=== PATIENT | male | born 1990 | race Caucasian/White ===

== ENCOUNTER 2019-08-20 05:00 | Emergency (ER) | payer SELFPAY | END 2019-08-20 07:43 | disposition left against medical advice (07) | LOC: ER 05:00 | DX: Z53.21 Procedure and treatment not carried out due to patient leaving prior to being seen by health care provider (principal) ==

== ENCOUNTER → 2020-08-06 | Outpatient (CLI) | payer BC ==
[2020-08-06 17:26] LABS: C-REACTIVE PROTEIN < 5.0 mg/L (<10.0)
== END ==
LOC: OD 16:02
PROVIDERS: ATTEND Pain Medicine Pain Medicine
DX: I77.6 Arteritis, unspecified (principal); E55.9 Vitamin D deficiency, unspecified; E34.9 Endocrine disorder, unspecified
CPT/HCPCS: 36415; 84402; 84403; 85652; 86021; 86140; 86200; 86225; 86235; 86431; 86812